=== PATIENT | female | born 1955 | race American Indian/Alaskan Native ===

== ENCOUNTER 2018-07-25 10:30 | Day surgery (SDC) | payer MEDICARE ==
[2018-07-25] MEDS ORDERED: IOPIDINE ONE (11:19)
[2018-07-25] MEDS ORDERED: MYDRIACYL ONE (11:19)
[2018-07-25] MEDS ORDERED: AK-Dilate ONE (11:19)
[2018-07-25] MEDS ORDERED: IOPIDINE OD ONE (11:26)
[2018-07-25] MEDS ORDERED: AK-Dilate OD ONE (11:27)
[2018-07-25] MEDS ORDERED: MYDRIACYL OD ONE (11:28)
[2018-07-25 12:41] VITALS: BP 140/90
== END 2018-07-25 12:15 | disposition home or self-care (01) ==
LOC: OR 10:30
PROVIDERS: ATTEND Ophthalmology
DX: H26.491 Other secondary cataract, right eye (principal); F32.9 Major depressive disorder, single episode, unspecified; I25.10 Atherosclerotic heart disease of native coronary artery without angina pectoris; E78.00 Pure hypercholesterolemia, unspecified; E06.9 Thyroiditis, unspecified; I10 Essential (primary) hypertension; Z90.710 Acquired absence of both cervix and uterus; Z86.2 Personal history of diseases of the blood and blood-forming organs and certain disorders involving the immune mechanism; Z98.890 Other specified postprocedural states; Z95.1 Presence of aortocoronary bypass graft; Z79.899 Other long term (current) drug therapy; Z79.84 Long term (current) use of oral hypoglycemic drugs; Z79.4 Long term (current) use of insulin; Z98.42 Cataract extraction status, left eye; Z98.41 Cataract extraction status, right eye
CPT/HCPCS: 82962